=== PATIENT | male | born 1965 | race Caucasian/White ===

== ENCOUNTER 2024-08-07 03:02 | Day surgery (SDC) | payer BC, SELFPAY ==
[2024-07-28 08:32] VITALS: BMI 24.3
[2024-08-07 06:13] VITALS: BP 128/73; PULSE 85; RESP 18; TEMP 36.1; O2SAT 100; BMI 24.1
[2024-08-07] MEDS: LACTATED RINGERS 1,000 ML 150 ML IV CONT (06:59)
--- NOTE | 2024-08-07 07:19 | SUR.PREOP ---
Informed Dr. Strickland that patient stated they ate a lunchable, Dr. Strickland will continue with procedure
--- NOTE | 2024-08-07 07:27 | P.PNAN_ITS ---
Anes - Initial Pre Proc Eval Procedure: Operation Date: 08/07/24 07:30 Proposed Procedures p Screening Colonoscopy - Bairon Strickland MD Date/Time: 08/07/24 07:27 Surgeon: Bairon Strickland MD Pre Op Diagnosis: hx colon polyps Patient Data Age: 59 Gender: M Height: 1.78 m Weight: 76.4 kg Last Vital Signs Temp 36.1 C L 08/07/24 06:13 Pulse 85 08/07/24 06:13 Resp 18 08/07/24 06:13 BP 128/73 08/07/24 06:13 Pulse Ox 100 08/07/24 06:13 O2 Del Method Room Air 08/07/24 06:13 Allergies Allergy/AdvReac Type Severity Reaction Status Date / Time No Known Allergies Allergy Verified 08/07/24 06:33 Home Medications Medication Instructions Recorded Confirmed Type tamsulosin 0.4 mg capsule 0.4 mg PO DAILY 07/28/24 08/07/24 History Patient hx anesthesia problems: none Family hx anesthesia problems: none Results Review: All pre-operative results and documents have been reviewed as part of the pre-operative evaluation. [facility] Social History Social History Alcohol intake: current Drinks per week: 1 Spiritual care concerns: No Anes - Eval Final PreProcedure Day of Procedure 08/07/24 07:27 Patient weight: normal Heart: regular rate and rhythm Lungs: clear to auscultation Airway: Mallampati scale class II Neurological: alert and oriented Last oral intake: >/= 8 hours ASA classification: II Emergent: no Anesthetic plan: proceed Anesthesia type and monitoring: general GIVS and standard monitoring Results Review: All pre-operative results and documents have been reviewed as part of the pre- operative evaluation. Informed Consent: The patient's anesthetic plan and its attendant risks and benefits were discussed with the patient/family/POA. Questions were solicited and answers provided to the satisfaction of the patient/family/POA.
--- NOTE | 2024-08-07 07:28 | PM.IMHP ---
H&P: HPI History of Present Illness Date/Time: 08/07/24 07:28 Chief Complaint: the patient comes today for his follow-up colonoscopy. Narrative: The patient has a history of colonic polyps, the last colonoscopy was Five years ago. [facility] Social History Social History Alcohol intake: current Drinks per week: 1 Spiritual care concerns: No Meds Home Medications and Allergies Home Medications Medication Instructions Recorded Confirmed Type tamsulosin 0.4 mg capsule 0.4 mg PO DAILY 07/28/24 08/07/24 History Allergies Allergy/AdvReac Type Severity Reaction Status Date / Time No Known Allergies Allergy Verified 08/07/24 06:33 Vital Signs Vital Signs - 24 hr 08/07/24 06:13 Temperature 97.0 F L Pulse Rate 85 Respiratory Rate 18 Blood Pressure 128/73 Pulse Oximetry 100 Oxygen Delivery Room Air Assessment and Plan Assessment and plan (1) History of colonic polyps: Code(s): Z86.0100 - Personal history of colon polyps, unspecified Status: Acute Plan The patient is deemed a good candidate for the procedure. Consent signed. Will proceed.
[2024-08-07 07:51] VITALS: BP 124/81; PULSE 72; RESP 13; O2SAT 100
[2024-08-07 08:01] VITALS: BP 121/82; PULSE 70; RESP 21; O2SAT 100
[2024-08-07 08:11] VITALS: BP 125/78; PULSE 64; RESP 11; O2SAT 100
== END 2024-08-07 08:21 | disposition home or self-care (01) ==
PROVIDERS: PCP Internal Medicine; Referring Provider Internal Medicine Gastroenterology; Visit Provider Internal Medicine Gastroenterology
PROC: 0DJD8ZZ Inspection of Lower Intestinal Tract, Via Natural or Artificial Opening Endoscopic (ICD-10-PCS; CPT 45378; principal; 2024-08-07 07:30)
DX: Z09 Encounter for follow-up examination after completed treatment for conditions other than malignant neoplasm (principal); D12.5 Benign neoplasm of sigmoid colon; K57.30 Diverticulosis of large intestine without perforation or abscess without bleeding
CPT/HCPCS: 45385; 88305; J2003; J2704; J7120

== ENCOUNTER 2025-04-24 16:38 | Emergency (ER) | payer BC, SELFPAY ==
--- NOTE | ~2025-04-24 | CT_ITS ---
CT of the Abdomen and Pelvis: Indication: Abdominal pain Technique: 2.5 mm axial scans were obtained through the abdomen and pelvis following intravenous adm inistration of 100 cc of Omnipaque 350. Dose reduction technique was used on this scan by utilizing a utomated exposure control and iterative reconstruction technique. The dose-length product (DLP) was 3 86.32 mGy-cm. Findings: Scans through the lung bases are unremarkable. The liver, spleen, pancreas, gallbladder, adrenals and kidneys are within normal limits. No evidence of aortic aneurysm. No lymphadenopathy. No bowel obstruction or bowel wall thickening. There is no evidence to suggest acute appendicitis. Images through the pelvis were performed. Urinary bladder unremarkable. Prostate gland is significant ly enlarged. Impression: No significant abnormalities seen. Reviewed, dictated and finalized at [facility]. Impression: No significant abnormalities seen.
--- NOTE | ~2025-04-24 | US_ITS ---
Limited Abdominal Sonogram: Real-time sonographic imaging of the right upper quadrant was performed. Clinical History: Acute cholecystitis Findings: The liver appears normal with no evidence of mass lesion or bile duct dilatation. Main por shaheen vein demonstrates normal direction of flow. The gallbladder is well distended, and appears normal with no evidence of gallstone or wall thickening. The common bile duct measures 5 mm. The visualize d pancreas, aorta, and IVC are unremarkable. Impression: No significant abnormality seen. Reviewed, dictated and finalized at location . Impression: No significant abnormality seen.
--- OUTSIDE RECORDS SUMMARY | 2025-04-24 16:39 | XMS_ITS | Clinical Summary ---
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 Gender Identity Not on file Sexual Orientation Not on file Last Filed Vital Signs Vital Sign Reading Time Taken Comments Blood Pressure - - Pulse - - Temperature - - Respiratory Rate - - Oxygen Saturation - - Inhaled Oxygen Concentration - - Weight 72.6 kg (160 lb) 11/08/2021 1:13 PM HEAT REGULATOR Height 177.8 cm (5' 10) 11/08/2021 1:13 PM HEAT REGULATOR Body Mass Index 22.96 11/08/2021 1:13 PM HEAT REGULATOR Plan of Treatment Health Maintenance Due Date Last Done Comments HEPATITIS B VACCINES (1 of 3 - 19+ 3-dose series) 05/08 COLORECTAL SCREENING 2012 Colorectal Cancer Screening 2012 FIT-DNA Q 3 years 2012 FIT/FOBT Q 1 year 2012 Flex Sig/CT Colonography Q 5 years 2012 ZOSTER VACCINE (1 of 2) 2017 INFLUENZA VACCINE (#1) 2025 DTAP/TDAP/TD VACCINES (2 - Td or Tdap) 10/29/2028 Insurance BS BLUE ACCESS/TRUE BLUE PPO Care Teams Director Physical Therapy Relationship Specialty Start Date End Date Hong Healy MD [address] [id number] PCP - General Internal Medicine 11/08/21
--- OUTSIDE RECORDS SUMMARY | 2025-04-24 16:40 | XMS_ITS | Clinical Summary ---
Author Organization [facility] Address [address] [place] [address] Care Team Providers Care Conveyor Man Name Role Phone Hong Healy MD Primary Care Provider [phone] Allergies No known active allergies Medications No known medications Active Problems Patient Care Coordination No te Formatting of this note migh t be different from the original. Tongue pain Problem Noted Date Diagnosed Date Sprain of left ankle 06/12/2022 Family history of colon cancer 12/06/2020 Assessment & Plan (12/06/2020 11:30 AM TRACTOR OPERATOR HELPER): Next colonoscopy in 2023 Anemia 03/11/2020 Contusion of rib 03/11/2020 Raised prostate specific antigen 03/11/2020 Assessment & Plan (12/06/2020 11:29 AM TRACTOR OPERATOR HELPER): Per urology Thalassemia 03/11/2020 Assessment & Plan (12/06/2020 11:29 AM TRACTOR OPERATOR HELPER): Will continue to follow Well adult health check 03/11/2020 Closed fracture of right fibula and tibia 2019 Overview (01/21/2020): Added automatically from request for surgery [id number] Pain in right knee 12/17/2017 Impotence 07/17/2017 Encounters Date Type Department Care Team Description 04/23/2025 Results Follow-Up [facility] [address] [place] [address] Jessica Crooks, CORRUGATED FASTENER DRIVER US Scrotum 04/19/2025 Telephone [facility] [address] [place] [phone] Hong Healy MD 04/16/2025 7:41 AM CDT - 04/16/2025 11:59 PM CDT Hospital Encounter [address] [address] Pain in right testicle; Swelling of right testicle Discharge Disposition: Discharge to home or self care 04/14/2025 2:45 PM CDT Office Visit [facility] [address] [place] [address] [address] [place] [phone] Jessica Crooks NP Pain in right testicle (Primary Dx); Swelling of right testicle; Right groin pain 02/26/2025 7:28 AM CDT - 02/26/2025 11:59 PM CDT Hospital Encounter [facility] [address] [place] [id number] RUQ pain Discharge Disposition: Discharge to home or self care 02/26/2025 Results Follow-Up [facility] [address] [place] [address] [address] [place] [phone] Hong Healy MD NE Hepatobiliary Imaging [facility] 02/13/2025 Results Follow-Up [facility] [address] [place] [address] [address] [place] [phone] Hong Healy MD Basic metabolic panel, Ferritin, CBC with auto differential 01/25/2025 Results Follow-Up [facility] [address] [place] [address] [address] [facility] [place] [phone] Hong Healy MD US RUQ from Last 3 Months Immunizations Immunization Administration Dates Next Due Tdap 10/29/2018 ZOSTER Recombinant 09/13/2022,04/14/2022 Surgical History Surgery Date Site/Laterality Comments ORIF TIBIA & FIBULA FRACTURES 01/06/2020 - 02/04/2020 Right SKIN GRAFT 10/07/1979 - 10/06/1980 Left knee NASAL FRACTURE SURGERY 10/07/1987 - 10/06/1988 COLONOSCOPY Multiple-- Last 2018 CYST REMOVAL 10/07/1985 - 10/06/1986 Lower abdomen-- Benign Medical History Medical History Date Comments History of anemia Depression Anxiety Thalassemia Family History Medical History Relation Name Comments Arthritis Father Tomas Cancer Father Tomas Gout Father Tomas Diabetes Mother Mother Hypertension Mother Mother Thyroid disease Mother Mother Anesthesia problems Neg Hx Relation Name Status Comments Father Tomas Mother Mother Social History Tobacco Use Types Packs/Day Years Used Date Smoking Tobacco: Never Smokeless Tobacco: Never Tobacco Cessation:Counseling Given: Not Answered Alcohol Use Standard Drinks/Week Comments Yes 0 (1 standard drink = 0.6 oz pur e alcohol) 2-3 month PHQ-2 Answer Date Recorded PHQ-2 Total Score (If total score is 3 or more points, staff should administer the PHQ-9) 0 12/30/2024 Sex and Gender Information Value Date Recorded Sex Assigned at Not on file Legal Sex Male 2:40 PM TRACTOR OPERATOR HELPER Gender Identity Male 08/26/2018 2:44 PM TRACTOR OPERATOR HELPER Sexual Orientation Straight 07/26/2024 9: 27 AM CDT Obstetrics History Last Filed Vital Signs Vital Sign Reading Time Taken Comments Blood Pressure 129/78 04/14/2025 3:06 PM CDT Pulse 77 04/14/2025 3:06 PM CDT Temperature 36.3 C (97.3 F) 07/26/2020 11:10 AM CDT Respiratory Rate 14 07/26/2020 11:10 AM CDT Oxygen Saturation 95% 06/03/2024 2:48 PM CDT Inhaled Oxygen Concentration - - Weight 78.5 kg (173 lb) 04/14/2025 3:06 PM CDT Height 177.8 cm (5' 10) 04/14/2025 3:06 PM CDT Body Mass Index 24.82 04/14/2025 3:06 PM CDT Plan of Treatment Health Maintenance Due Date Last Done Comments Meningococcal B Vaccine (1 of 5 - Increased Risk) 1977 Hepatitis B Screening 1985 Influenza Vaccine (#1) 2025 Pneumococcal vaccine <65 (1 of 2 - PCV) 12/22/2025 Postponed from 1986 (Patient declined, but will receive in the future) Depression Screening 01/06/2026 01/06/2025, 01/07/20 24 Regular Well Visit/Exam 18-64 01/06/2026 01/06/2025, 01/07/2024, 11/09/2022, Additional history exists Prostate Cancer Screening-PSA 01/06/2027 01/06/2025, 06/11/2023, 11/27/2021 DTaP/Tdap/Td Vaccine (2 - Td or Tdap) 10/29/2028 10/29/2018 Colon Cancer Screening-Colonoscopy 12/06/2028 12/06/2018 Colon Cancer Screening-CT Colonography Discontinued 12/06/2018 Colon Cancer Screening-DNA Stool Discontinued 12/06/2018 Colon Cancer Screening-FIT Discontinued 12/06/2018 Colon Cancer Screening-Sigmoidoscopy Discontinued 12/06/2018 Zoster Vaccine Completed 09/13/2022, 04/14/2022 Hepatitis C Screening Completed 01/06/2025 Medical Devices Implanted Type Area Stock Dealer Device Identifier Shelf Expiration Date Model / Serial / Lot [employer]/Orth o [id number] Evos 32mm 4 Hole Lock Reconstruction Plate Bone Sterile 2.7mm - [id number] Implanted:Qty: 1 on 01/22/2020 by Nicki Bates MD at [facility] Right: Tibia [employer]Or tho [id number] / / [employer]Orth o [id number] Evos 3.5mm 40mm Self Tap Cortex Screw Bone Sterile - [id number] Implanted:Qty: 1 on 01/22/2020 by Nicki Bates MD at [facility] Right: Tibia [employer]Or tho [id number] / / [employer]Orth o [id number] Evos 3.5mm 24mm Self Tap Cortex Screw Bone Sterile - [id number] Implanted:Qty: 1 on 01/22/2020 by iNcki Bates MD at [facility] Right: Tibia [employer]Or tho [id number] / / [employer]Orth o [id number] Evos 3.5mm 24mm Self Tap Lock Screw Bone Sterile - [id number] Implanted:Qty: 1 on 01/22/2020 by Nicki Bates MD at [facility] Right: Tibia [employer]Or tho [id number] / / [employer]Orth o [id number] Evos 3.5mm 80mm Self Tap Lock Screw Bone Sterile - [id number] Implanted:Qty: 1 on 01/22/2020 by Nicki Bates MD at [facility] Right: Tibia [employer]Or tho [id number] / / [employer]/Orth o [id number] Evos 3.5mm 75mm Self Tap Lock Screw Bone Sterile - [id number] Implanted:Qty: 6 on 01/22/2020 by Nicki Bates MD at [facility] Right: Tibia [employer]Or tho [id number] / / [employer]Orth o [id number] Evos 3.5mm 70mm Self Tap Lock Screw Bone Sterile - [id number] Implanted:Qty: 1 on 01/22/2020 by Nicki Bates MD at [facility] Right: Tibia [employer]Or tho [id number] / / [employer]/Orth o [id number] Evos 3.5mm 60mm Self Tap Lock Screw Bone Sterile - [id number] Implanted:Qty: 2 on 01/22/2020 by Nicki Bates MD at [facility] Right: Tibia [employer]Or tho [id number] / / [employer]/Orth o [id number] Evos 3.5mm 55mm Self Tap Lock Screw Bone Sterile - [id number] Implanted:Qty: 1 on 01/22/2020 by Nicki Bates MD at [facility] Right: Tibia [employer]Or tho [id number] / / [employer]/Orth o [id number] - [id number] Implanted:Qty: 1 on 01/22/2020 by Nicki Bates MD at [facility] Right: Tibia [employer]Or tho [id number] / / [employer]Orth o [id number] Evos 75x10.9x2mm 25x1.5mm 4 Hole Low Profile Variable Angle Lock - [id number] Implanted:Qty: 1 on 01/22/2020 by Nicki Bates MD at [facility] Right: Tibia [employer]Or tho [id number] / / [employer]/Orth o [id number] Evos 200x11.5x3.6mm 32.3x1.9mm 16 Hole Low Profile Variable Angle - [id number] Implanted:Qty: 1 on 01/22/2020 by Nicki Bates MD at [facility] Right: Tibia [employer]Or tho [id number] / / [employer]/Orth o [id number] Evos Mini 2.7mm 4.5mm 75mm Self Tap Cooler Conveyor Loader Long Bone Small Bone - [id number] Implanted:Qty: 2 on 01/22/2020 by Nicki Bates MD at [facility] Right: Tibia [employer]Or tho [id number] / / [employer]/Orth o [id number] Evos Mini 2.7mm 4.5mm 75mm Self Tap Cortex T8 Screw Bone - [id number] Implanted:Qty: 1 on 01/22/2020 by Nicki Bates MD at [facility] Right: Tibia [employer]Or tho [id number] / / [employer]/Orth o [id number] Evos Mini 2.7mm 4.5mm 65mm Self Tap Cortex T8 Screw Bone - [id number] Implanted:Qty: 1 on 01/22/2020 by Nicki Bates MD at [facility] Right: Tibia [employer]/Or tho [id number] / / [employer]/Orth o [id number] Evos 3.5mm 34mm Self Tap Cortex Screw Bone Sterile - [id number] Implanted:Qty: 1 on 01/22/2020 by Nicki Bates MD at [facility] Right: Tibia [employer]/Or tho [id number] / / [employer]/Orth o [id number] Evos 3.5mm 22mm Self Tap Cortex Screw Bone Sterile - [id number] Implanted:Qty: 1 on 01/22/2020 by Nicki Bates MD at [facility] Right: Tibia [employer]/Or tho [id number] / / Explanted Type Area Stock Dealer Device Identifier Shelf Expiration Date Model / Serial / Lot [employer]/ Ortho [id number] Evos 3.5mm 36mm Self Tap Cortex Screw Bone Sterile - [id number] Explanted:Qty: 1 on 01/22/2020 by Nicki Bates MD at [facility] Right: Tibia [employer]Or tho [id number] / / Procedures Procedure Name Priority Date/Time Associated Diagnosis Comments US SCROTUM Schedule Routine, Read Routine (OP Routine) 04/16/2025 8:20 AM CDT Pain in right testicle Swelling of right testicle NM HEPATOBILIARY IMAGING W MORPHINE Schedule Routine, Read Routine (OP Routine) 02/26/2025 9:49 AM CDT RUQ pain CBC WITH AUTO DIFFERENTIAL Routine 02/12/2025 12:31 PM CDT Dehydration FERRITIN Routine 02/12/2025 12:31 PM CDT Dehydration BASIC METABOLIC PANEL Routine 02/12/2025 12:31 PM CDT Dehydration HEPATITIS C ANTIBODY Routine 01/06/2025 3:14 PM CDT Routine general medical examination at a health care facility Encounter for hepatitis C screening test for low risk patient Screening for prostate cancer Right upper quadrant pain PSA SCREEN Routine 01/06/2025 3:14 PM CDT Routine general medical examination at a health care facility Encounter for hepatitis C screening test for low risk patient Screening for prostate cancer Right upper quadrant pain COLONOSCOPY Routine 12/06/2018 from Last 3 Months or Most Recently Relevant to Health Maintenance Results * US Scrotum (04/16/2025 8:20 AM CDT) Anatomical Region Laterality Modality Testis N/A Ultrasound 04/22/2025 5:15 PM CDT Narrative 04/22/2025 5:18 PM CDT EXAM DESCRIPTION: US SCROTUM; US GROIN MASS HERNIA RIGHT REASON FOR STUDY: right testicle pain, swelling ; right groin pain TECHNIQUE: Pichardo scale imaging of the scrotum, testes, and bilateral inguinal regions. COMPARISON: None FINDINGS: RIGHT: TESTICLE: The right testicle measures 4.9 x 2.9 x 1.7 cm. The right testicle is normal in echotexture and contour with no mass. There is normal blood flow. EPIDIDYMIS: The epididymis is normal in size and appearance. HYDROCELE OR VARICOCELE: There is no evidence of significant hydrocele or varicocele. HERNIA OR EXTRA-TESTICULAR MASS: There is no evidence of extratesticular mass. OTHER: A lymph node measuring 0.7 cm in shortest diameter is seen. LEFT: TESTICLE: The left testicle measures 4.0 x 2.6 x 2.2 cm. The left testicle is normal in echotexture and contour with no solid mass. There is a 1.5 x 1.2 x 0.9 cm cyst in the left testicle. There is normal blood flow. EPIDIDYMIS: The epididymis is normal in size and appearance. HYDROCELE OR VARICOCELE: There is no evidence of significant hydrocele or varicocele. HERNIA OR EXTRA-TESTICULAR MASS: There is no evidence of extratesticular mass. OTHER: A lymph node measuring 0.6 cm in shortest diameter is seen. IMPRESSION: 1. Left testicular cyst. 2. Bilateral inguinal lymph nodes which appear benign by size criteria. THIS IS AN ELECTRONICALLY VERIFIED FINAL REPORT 04/22/2025 5:18 PM - Electronically signed by Anirudh WINN T: Report ID: [id number] Reading Location: [id number] Procedure Note Anirudh Delgado MD - 07/17/2025 EXAM DESCRIPTION: US SCROTUM; US GROIN MASS HERNIA RIGHT REASON FOR STUDY: right testicle pain, swelling ; right groin pain TECHNIQUE: Pichardo scale imaging of the scrotum, testes, and bilateralinguinal regions. COMPARISON: None FINDINGS: RIGHT: TESTICLE: The right testicle measures 4.9 x 2.9 x 1.7 cm. The right testicle is normal in echotexture and contour with no mass. There isnormal blood flow. EPIDIDYMIS: The epididymis is normal in size and appearance. HYDROCELE OR VARICOCELE: There is no evidence of significant hydroceleor varicocele. HERNIA OR EXTRA-TESTICULAR MASS: There is no evidence of extratesticular mass. OTHER: A lymph node measuring 0.7 cm in shortest diameter is seen. LEFT: TESTICLE: The left testicle measures 4.0 x 2.6 x 2.2 cm. The lefttesticle is normal in echotexture and contour with no solid mass. There is a 1.5 x1.2 x 0.9 cm cyst in the left testicle. There is normal blood flow. EPIDIDYMIS: The epididymis is normal in size and appearance. HYDROCELE OR VARICOCELE: There is no evidence of significant hydroceleor varicocele. HERNIA OR EXTRA-TESTICULAR MASS: There is no evidence of extratesticular mass. OTHER: A lymph node measuring 0.6 cm in shortest diameter is seen. IMPRESSION: 1. Left testicular cyst. 2. Bilateral inguinal lymphnodes which appear benign by size criteria. THIS IS AN ELECTRONICALLY VERIFIED FINAL REPORT 04/22/2025 5:18 PM - Electronically signed by Anirudh Delgado M.D. BS T: Report ID: [id number] Reading Location: [id number] us Jessica Crooks NP IMG US PROCEDURES Final Resul t * NM Hepatobiliary Imaging W GBEF (02/26/2025 9:49 AM CDT) Anatomical Region Laterality Modality Body N/A Nuclear Medicine 02/26/2025 11:4 0 AM CDT Impressions 02/26/2025 11:45 AM CDT 1. Borderline contractile response of gallbladder to sincalide infusion. Given that the prior RUQ ultrasound did not show any signs of cholecystitis, findings are favored to represent a normal variant. 2. Normal biliary imaging study. Dictated by: Monica Cast The radiology attending physician has personally reviewed this study, and had reviewed and/or edited this written report and agrees with it. Electronically signed by: DO Cole Hernandez 02/26/2025 11:45 AM CDT EXAMINATION: HEPATOBILIARY SCINTIGRAPHY (WITH GALLBLADDER EJECTION FRACTION) DATE OF STUDY: 02/26/2025 RADIOPHARMACEUTICAL: 3.3 mCi Tc-99m mebrofenin i.v. and 1.5 mcg sincalide i.v. HISTORY: 9-year-old man with right upper quadrant abdominal pain. FINDINGS: Following intravenous administration of tracer, sequential abdominal images were obtained. There is prompt, uniform accumulation of the tracer by the liver. There is normal filling of the intrahepatic ducts, common bile duct and gallbladder and normal excretion of the tracer into the duodenum. In order to evaluate the contractile response of the gallbladder in response to cholecystokinin, sincalide (0.02 mcg /kg) was administered by slow intravenous infusion over 30 minutes, starting approximately 60 minutes after the administration of the radiopharmaceutical. Sequential imaging was continued for 30 minutes after the start of the sincalide infusion. These images demonstrate good contraction of the gallbladder. The calculated gallbladder ejection fraction is 35% (normal greater than 35%). The patient reported no symptoms during Sincalide administration. A screen capture image demonstrating the quantitative results of this study was sent to [facility] by the interpreting physician Dr Rowdy Arriaza. Procedure Note Rowdy Arriaza DO - 02/26/2025 EXAMINATION: HEPATOBILIARY SCINTIGRAPHY (WITH GALLBLADDER EJECTION FRACTION) DATE OF STUDY: 02/26/2025 RADIOPHARMACEUTICAL: 3.3 mCi Tc-99m mebrofenin i.v. and 1.5 mcg sincalide i.v. HISTORY: 9-year-old man with right upper quadrant abdominal pain. FINDINGS: Following intravenous administration of tracer, sequential abdominal images were obtained. There is prompt, uniform accumulation of the tracer by the liver. There is normal filling of the intrahepatic ducts, common bile duct and gallbladder and normal excretion of the tracer into the duodenum. In order to evaluate the contractile response of the gallbladder in response to cholecystokinin, sincalide (0.02 mcg /kg) was administered by slow intravenous infusion over 30 minutes, starting approximately 60 minutes after the administration of the radiopharmaceutical. Sequential imaging was continued for 30 minutes after the start of the sincalide infusion. These images demonstrate good contraction of the gallbladder. The calculated gallbladder ejection fraction is 35% (normal greater than 35%). The patient reported no symptoms during Sincalide administration. A screen capture image demonstrating the quantitative results of this study was sent to [facility] by the interpreting physician Dr Rowdy Arriaza. IMPRESSION: 1. Borderline contractile response of gallbladder to sincalide infusion. Given that the prior RUQ ultrasound did not show any signs of cholecystitis, findings are favored to represent a normal variant. 2. Normal biliary imaging study. Dictated by: Monica Cast The radiology attending physician has personally reviewed this study, and had reviewed and/or edited this written report and agrees with it. Electronically signed by: Rowdy Arriaza DO us Hong Healy MD IM NM PROCEDURES Final Resul t * (ABNORMAL) CBC with auto differential (02/12/2025 12:31 PM CDT) WBC 4.6 3.4 - 10.8 x10E3/uL [facility] - 01 RBC 6.05(H) 4.14 - 5.80 x10E6/uL [facility] - 01 Hgb 12.6(L) 13.0 - 17.7 g/dL [facility] - 01 Hct 41.6 37.5 - 51.0 % [facility] - 01 MCV 69(L) 79 - 97 fL [facility] - 01 MCH 20.8(L) 26.6 - 33.0 pg [facility] - 01 MCHC 30.3(L) 31.5 - 35.7 g/dL [facility] - 01 Rdw 17.0(H) 11.6 - 15.4 % [facility] - 01 Platelets 227 150 - 450 x10E3/uL [facility] - 01 Neutrophils pct 62 Not Estab. % [facility] - 01 Lymphs pct 26 Not Estab. % [facility] - 01 Monocytes pct 9 Not Estab. % [facility] - 01 Eosinophils pct 2 Not Estab. % [facility] - 01 Basophil pct 1 Not Estab. % [facility] - 01 Neutrophil abs 2.9 1.4 - 7.0 x10E3/uL [facility] - 01 Lymphs (Absolute) 1.2 0.7 - 3.1 x10E3/uL [facility] - 01 Monocyte abs 0.4 0.1 - 0.9 x10E3/uL [facility] - 01 Eosinophils, abs 0.1 0.0 - 0.4 x10E3/uL [facility] - 01 Basophils, abs 0.0 0.0 - 0.2 x10E3/uL [facility] - 01 Immature Granulocytes 0 Not Estab. % [facility] - 01 Immature Grans (Abs) 0.0 0.0 - 0.1 x10E3/uL [facility] - 01 Blood 02/12/2025 12:3 1 PM CDT 02/12/2025 Narrative [facility] - 02/13/2025 9:10 AM CDT Performed at: [address] [place] [id number] Risk Adjustment Specialist: Akira Meraz PhD, Phone: [phone] Hong Healy MD LAB BLOOD ORDERABLES Final Re sult Performing Organization Address [facility] de Phone Number [facility] * Ferritin (02/12/2025 12:31 PM CDT) [facility] Ferritin 187 30 - 400 ng/mL [facility] - 01 Blood 02/12/2025 12:3 1 PM CDT 02/12/2025 Narrative [facility] - 02/13/2025 9:10 AM CDT Performed at: [address] [place] [id number] Risk Adjustment Specialist: Akira Meraz PhD, Phone: [phone] Hong Healy MD LAB BLOOD ORDERABLES Final Re sult Performing Organization Address [facility] de Phone Number [facility] - * Basic metabolic panel (02/12/2025 12:31 PM CDT) Glucose 91 70 - 99 mg/dL [facility] - 01 BUN 11 6 - 24 mg/dL [facility] - 01 Creatinine, Serum 0.89 0.76 - 1.27 mg/dL [facility] - 01 eGFR 100 >59 mL/min/1.73 [facility] - 01 BUN/creat ratio 12 9 - 20 [facility] - 01 Sodium 139 134 - 144 mmol/L [facility] - 01 Potassium, sr 4.2 3.5 - 5.2 mmol/L [facility] - 01 Chloride 100 96 - 106 mmol/L [facility] - 01 CO2 26 20 - 29 mmol/L [facility] - 01 Calcium 9.0 8.7 - 10.2 mg/dL [facility] - 01 Blood 02/12/2025 12:3 1 PM CDT 02/12/2025 Narrative [facility] - 02/13/2025 9:10 AM CDT Performed at: [address] [id number] Risk Adjustment Specialist: Akira Meraz PhD, Phone: [phone] us Hong Healy MD LAB BLOOD ORDERABLES Final Re sult [facility] - * (ABNORMAL) PSA screen (01/06/2025 3:14 PM CDT) Pathologist [facility] PSA-Total 4.51(H) <=3.90 ng/mL Comment: Interpretive Data AGE SEX REFERENCE INTERVAL 0 minutes-150 years Female None 0 minutes-49 years Male None 50-59 years Male 0-3.90 60-69 years Male 0-5.40 70-79 years Male 0-6.20 80-150 years Male 0-6.20 The [employer] PSA Total assay procedure was used. Results from different manufacturers or methods may not be comparable. Serial testing should be performed using the same method. Current interpretive data last revised 22. Blood 01/06/2025 3:14 PM CDT 01/06/2025 3:42 PM CDT Hong Healy MD LAB BLOOD ORDERABLES Final Re sult Performing Organization Address City/State/[facility] Co de Phone Number [facility] Department [place] [address] * Hepatitis C antibody Blood (01/06/2025 3:14 PM CDT) Hep C Ab Nonreactive Nonreactive Comment:Antibodies to HCV no t detected. Does NOT exclude the possibility of recent exposure to HCV. Current interpretive data was last revised on 22 Blood 01/06/2025 3:14 PM CDT 01/06/2025 3:42 PM CDT Hong Healy MD LAB MICROBIOLOGY - GENERAL OR DERABLES Final Result Performing Organization Address [facility] Co de Phone Number AARON [facility] Department [place] [address] * Colonoscopy (12/06/2018) Anatomical Region Laterality Modality Other Narrative 12/06/2018 Pt reported he had 2 [facility] ago [facility] Historical Provider ENDOSCOPY PROCEDURES Aidee l Result from Last 3 Months or Most Recently Relevant to Health Maintenance Insurance [facility]115 network disks CHOICE Datam OOS [facility]115 network disks CHOICE MAURA ACCESS CHOICE Advance Directives For more information, please contact: [phone] * Full Code (Latest Code Status on File) Date Activated Date Inactivated Comments 01/21/2020 10:40 PM 01/24/2020 8:13 PM Care Teams Conveyor Man Relationship Specialty Start Date End Date Hong Healy MD PCP - General Internal Medicine 12/06/20
--- OUTSIDE RECORDS SUMMARY | 2025-04-24 16:40 | XMS_ITS | Encounter Summary ---
Author Organization [facility] Address [address] [place] [address] Care Team Providers Care Concrete Mixer Operator Helper Name Role Phone Hong Healy MD Primary Care Provider [phone] Reason for Referral * MRI/CAT/PET Scan (Routine) - Authorized Specialty Diagnoses / Procedures Referred By Contac t Referred To Contact Radiology Diagnoses Pain in right testicle Procedures CT Abdomen Pelvis W Contrast Jessica Crooks NP [address] [address] Phone: tel: fax: [address] [phone] Referral ID Status Reason Start Date Expiration Date V isits Requested Visits Authorized [id number] Authorized 04/23/2025 05/22/2025 1 1 Encounter Details Date Type Department Care Team (Late st Contact Info) Description 04/23/2025 Results Follow-Up [facility] [address] 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 Otherwise normal, no mass or hernia seen. Recommend CT scan of the abd/pelvis with contrast for further evaluation of groin pain. Also recommend checking a UA with reflex to urine culture - what ever lab he would like to go to. ----- Message ----- From: Interface, Radiology Results In Sent: 04/22/2025 5:20 PM CDT To: Jessica Crooks NP * Telephone Encounter - Ryann Moore RMA - 04/23/2025 3:26 PM CDT Pt aware sent lab [facility] for [facility] Ct schedulked 04/30/25 arrive 1:10 * Telephone Encounter - Ryann Moore RMA - 04/23/2025 3:26 PM CDT ----- Message from Jessica Crooks NP sent at 04/23/2025 11:46 AM CDT ----- US of groin and scrotum showed cyst on the left testicle and bilateral inguinal lymph nodes that appear benign. Otherwise normal, no mass or hernia seen. Recommend CT scan of the abd/pelvis with contrast for further evaluation of groin pain. Also recommend checking a UA with reflex to urine culture - what ever lab he would like to go to. ----- Message ----- From: Interface, Radiology Results In Sent: 04/22/2025 5:20 PM CDT To: Jessica Crooks NP documented in this encounter Plan of Treatment Scheduled Orders Name Type Priority Associated Diagnoses Order Schedule Urinalysis reflex to microscopic and culture Urine Microbiology Routine Pain in right testicle Expected: 04/26/2025, Expires: 04/23/2026 CT Abdomen Pelvis W Contrast Imaging Schedule Routine, Read Routine (OP Routine) Pain in right testicle Expected: 04/23/2025, Expires: 04/23/2026 documented as of this encounter Visit Diagnoses Diagnosis Pain in right testicle- Primary Unspecified disorder of male genital organs documented in this encounter Care Teams Concrete Mixer Operator Helper Relationship Specialty Start Date End Date Hong Healy MD PCP - General Internal Medicine 12/06/20 documented as of this encounter
--- OUTSIDE RECORDS SUMMARY | 2025-04-24 16:40 | XMS_ITS | Referral Summary ---
Author Organization [facility] Address [address] [place] [address] Care Team Providers Care Curriculum And Assessment Director Name Role Phone Hong Healy MD Primary Care Provider [phone] Encounters Date Type Department Care Team Description 04/23/2025 Results Follow-Up [facility] [address] [place] [address] [address] [place] [id number] [facility]25 Telephone [facility] [address] [place] [address] [address] [place] [phone] Hong Healy MD 04/16/2025 7:41 AM CDT - 04/16/2025 11:59 PM CDT Hospital Encounter [address] [address] Pain in right testicle; Swelling of right testicle Discharge Disposition: Discharge to home or self care 04/14/2025 2:45 PM CDT Office Visit [facility] [address] [place] [address] [address] [place] [phone] Jessica Crooks NP Pain in right testicle (Primary Dx); Swelling of right testicle; Right groin pain 02/26/2025 Results Follow-Up [facility] [address] [place] [address] [address] [place] [phone] Hong Healy MD [facility] 02/26/2025 7:28 AM CDT - 02/26/2025 11:59 PM CDT Hospital Encounter [facility] [address] [place] [address] RUQ pain Discharge Disposition: Discharge to home or self care 02/13/2025 Results Follow-Up [facility] [address] [facility] [address] [place] [address] Hong Healy MD Basic metabolic panel, Ferritin, CBC with auto differential 01/25/2025 Results Follow-Up [facility] [address] [facility] [address] [facility] [place] [address] Hong Healy MD US RUQ from Last 3 Months Allergies No known active allergies Medications No known medications Active Problems Patient Care Coordination No te Formatting of this note migh t be different from the original. Tongue pain Problem Noted Date Diagnosed Date Sprain of left ankle 06/12/2022 Family history of colon cancer 12/06/2020 Assessment & Plan (12/06/2020 11:30 AM STUDENT SERVICES DEAN): Next colonoscopy in 2023 Anemia 03/11/2020 Contusion of rib 03/11/2020 Raised prostate specific antigen 03/11/2020 Assessment & Plan (12/06/2020 11:29 AM STUDENT SERVICES DEAN): Per urology Thalassemia 03/11/2020 Assessment & Plan (12/06/2020 11:29 AM STUDENT SERVICES DEAN): Will continue to follow Well adult health check 03/11/2020 Closed fracture of right fibula and tibia 2019 Overview (01/21/2020): Added automatically from request for surgery [id number] Pain in right knee 12/17/2017 Impotence 07/17/2017 Immunizations Immunization Administration Dates Next Due Tdap 10/29/2018 ZOSTER Recombinant 09/13/2022,04/14/2022 Social History Tobacco Use Types Packs/Day Years [...] on file Legal Sex Male 2:40 PM STUDENT SERVICES DEAN Gender Identity Male 08/26/2018 2:44 PM STUDENT [employer] DEAN Sexual Orientation Straight 07/26/2024 9: 27 AM CDT Last Filed Vital Signs Vital Sign Reading [...] 04/14/2025 3:06 PM CDT Plan of Treatment Not on file Medical Devices Implanted Type Area Stitcher Set Up Operator Automatic Device Identifier Shelf Expiration Date Model / Serial / Lot [employer]/Orth o [id number] Evos 32mm 4 Hole Lock Reconstruction Plate Bone Sterile 2.7mm - [id number] Implanted:Qty: 1 on 01/22/2020 by Nicki Bates MD at [facility] Right: Tibia [employer]Or tho [id number] / / [employer]Orth o [id number] Evos 3.5mm 40mm Self Tap Cortex Screw Bone Sterile - [id number] Implanted:Qty: 1 on 01/22/2020 by Nicki Bates MD at [facility] Right: Tibia [employer]Or tho [id number] / / [employer]Orth o [id number] Evos 3.5mm 24mm Self Tap Cortex Screw Bone Sterile - [id number] Implanted:Qty: 1 on 01/22/2020 by Nicki Bates MD at [facility] Right: Tibia [employer]Or tho [id number] / / [employer]Orth o [id number] Evos 3.5mm 24mm Self Tap Lock Screw Bone Sterile - [id number] Implanted:Qty: 1 on 01/22/2020 by Nicki Bates MD at [facility] Right: Tibia [employer]Or tho [id number] / / [employer]/Orth o [id number] Evos 3.5mm 80mm Self Tap Lock Screw Bone Sterile - [id number] Implanted:Qty: 1 on 01/22/2020 by Nicki Bates MD at [facility] Right: Tibia [employer]Or tho [id number] / / [employer]/Orth o [id number] Evos 3.5mm 75mm Self Tap Lock Screw Bone Sterile - [id number] Implanted:Qty: 6 on 01/22/2020 by Nicki Bates MD at [facility] Right: Tibia [employer]Or tho [id number] / / [employer]/Orth o [id number] Evos 3.5mm 70mm Self Tap Lock Screw Bone Sterile - [id number] Implanted:Qty: 1 on 01/22/2020 by Nicki Bates MD at [facility] Right: Tibia [employer]Or tho [id number] / / [employer]/Orth o [id number] Evos 3.5mm 60mm Self Tap Lock Screw Bone Sterile - [id number] Implanted:Qty: 2 on 01/22/2020 by Nicki Bates MD at [facility] Right: Tibia [employer]Or tho [id number] / / [employer]/Orth o [id number] Evos 3.5mm 55mm Self Tap Lock Screw Bone Sterile - [id number] Implanted:Qty: 1 on 01/22/2020 by Nicki Bates MD at [facility] Right: Tibia [employer]/Or tho [id number] / / [employer]/Orth o [id number] - [id number] Implanted:Qty: 1 on 01/22/2020 by Nicki Bates MD at [facility] Right: Tibia [employer]Or tho [id number] / / [employer]Orth o [id number] Evos 75x10.9x2mm 25x1.5mm 4 Hole Low Profile Variable Angle Lock - [id number] Implanted:Qty: 1 on 01/22/2020 by Nicki Bates MD at [facility] Right: Tibia [employer]Or tho [id number] / / [employer]/Orth o [id number] Evos 200x11.5x3.6mm 32.3x1.9mm 16 Hole Low Profile Variable Angle - [id number] Implanted:Qty: 1 on 01/22/2020 by Nicki Bates MD at [facility] Right: Tibia [employer]Or tho [id number] / / [employer]/Orth o [id number] Evos Mini 2.7mm 4.5mm 75mm Self Tap Single Pass Soil Stabilizer Operator Long Bone Small Bone - [id number] Implanted:Qty: 2 on 01/22/2020 by Nicki Bates MD at [facility] Right: Tibia [employer]Or tho [id number] / / [employer]/Orth o [id number] Evos Mini 2.7mm 4.5mm 75mm Self Tap Cortex T8 Screw Bone - [id number] Implanted:Qty: 1 on 01/22/2020 by Nicki Bates MD at [facility] Right: Tibia [employer]/Or tho [id number] / / [employer]/Orth o [id number] Evos Mini 2.7mm 4.5mm 65mm Self Tap Cortex T8 Screw Bone - [id number] Implanted:Qty: 1 on 01/22/2020 by Nicki Bates MD at [facility] Right: Tibia [employer]/Or tho [id number] / / [employer]/Orth o [id number] Evos 3.5mm 34mm Self Tap Cortex Screw Bone Sterile - [id number] Implanted:Qty: 1 on 01/22/2020 by Nicki Bates MD at [facility] Right: Tibia [employer]/Or tho [id number] / / [employer]/Orth o [id number] Evos 3.5mm 22mm Self Tap Cortex Screw Bone Sterile - [id number] Implanted:Qty: 1 on 01/22/2020 by Nicki Bates MD at [facility] Right: Tibia [employer]/Or tho [id number] / / Explanted Type Area Stitcher Set Up Operator Automatic Device Identifier Shelf Expiration Date Model / Serial / Lot [employer]/ Ortho [id number] Evos 3.5mm 36mm Self Tap Cortex Screw Bone Sterile - [id number] Explanted:Qty: 1 on 01/22/2020 by Nicki Bates MD at [facility] Right: Tibia [employer]/Or tho [id number] / / Procedures Procedure Name Priority Date/Time [...] Anirudh Delgado M.D. BS T: Report ID: [id number] Reading Location: [id number] Procedure Note Anirudh Delgado MD - 04/22/2025 EXAM DESCRIPTION: US SCROTUM; US GROIN MASS [...] Anirudh Delgado M.D. BS T: Report ID: [id number] Reading Location: [place] [address] us Jessica Crooks NP IMG US PROCEDURES [...] results of this study was sent to [employer] by the interpreting physician Dr Rowdy Arriaza. [...] results of this study was sent to [employer] by the interpreting physician Dr Rowdy Arriaza. [...] - 02/13/2025 9:10 AM CDT Performed at: [address] [place] [id number] Cosmetic Sales Consultant: Akira Meraz PhD, Phone: [phone] us Hong Healy MD LAB BLOOD ORDERABLES Final Re sult [facility] * Ferritin (02/12/2025 12:31 PM CDT) [facility] Ferritin 187 30 - 400 ng/mL [facility] - 01 Blood 02/12/2025 12:3 1 PM CDT 02/12/2025 Narrative [facility] - 02/13/2025 9:10 AM CDT Performed at: 01 - [facility] [id number] Cosmetic Sales Consultant: Akira Meraz PhD, Phone: [phone] Hong Healy MD LAB BLOOD ORDERABLES Final Re sult Performing Organization Address [facility] Co de Phone Number [facility] * Basic metabolic panel (02/12/2025 12:31 PM CDT) Pathologist [facility] Glucose 91 70 - 99 mg/dL [facility] [...] - 02/13/2025 9:10 AM CDT Performed at: [address] [place] [id number] Cosmetic Sales Consultant: Akira Meraz PhD, Phone: [phone] Hong Healy MD LAB BLOOD ORDERABLES Final Re sult Performing Organization Address [facility] Co de Phone Number [facility] - * (ABNORMAL) PSA screen (01/06/2025 3:14 PM CDT) Pathologist [facility] PSA-Total 4.51(H) <=3.90 ng/mL Comment: Interpretive Data [...] ORDERABLES Final Re sult Performing Organization Address [facility] Co de Phone Number [facility] Department [place] [address] * Hepatitis C antibody Blood (01/06/2025 3:14 PM CDT) Hep C Ab Nonreactive Nonreactive Comment:Antibodies to HCV no t detected. Does NOT exclude the possibility of recent exposure to HCV. Current interpretive data was last revised on 22 Blood 01/06/2025 3:14 PM CDT 01/06/2025 3:42 PM CDT Hong Healy MD LAB MICROBIOLOGY - GENERAL OR DERABLES Final Result Performing Organization Address [facility] de Phone Number [facility] Department [place] [address] * Colonoscopy (12/06/2018) Anatomical Region Laterality Modality Other Narrative 12/06/2018 Pt reported he [facility] 2 [facility] Historical Provider ENDOSCOPY PROCEDURES Aidee l Result from Last 3 Months or Most Recently Relevant to Health Maintenance [facility] [employer] [facility] ACCESS CHOICE Advance Directives For more information, please contact: [phone] * Full Code (Latest Code Status on File) Date Activated Date Inactivated Comments 01/21/2020 10:40 PM 01/24/2020 8:13 PM Care Teams Curriculum And Assessment Director Relationship Specialty Start Date End Date Hong Healy MD PCP - General Internal Medicine 12/06/20
[2025-04-24 16:48] VITALS: BP 154/74; PULSE 121; RESP 20; TEMP 36.2; O2SAT 100
[2025-04-24 17:11] LABS: Hematocrit 42.4 % (42.0-52.0); Hemoglobin 12.7 g/dL (14.0-18.0); Immature Granulocyte Percent A 0.2 % (0-0.5); Lymphocytes Absolute Auto 1.56 K/mm3 (0.9-3.2); Mean Corpuscular HGB Conc 30.0 g/dl (32-36); Mean Corpuscular Hemoglobin 20.4 pg (26-34); Mean Corpuscular Volume 67.9 fl (80-100); Nucleated Red Blood Cells Absolute Auto 0.000 K/mm3 (0.0-0.012); Nucleated Red Blood Cells Perc 0.0 % (0.0-0.2); Platelet Count Result 292 k/mm3 (150-375); Red Blood Count 6.24 M/mm3 (4.6-6.20); White Blood Count 6.2 K/mm3 (4.5-10.0)
[2025-04-24] MEDS: ONDANSETRON INJ 4 MG/2 ML VIAL IV PUSH ×2 (17:16→20:19)
[2025-04-24] MEDS: LACTATED RINGERS 1,000 ML 999 ML IV CONT ×2 (17:16→18:02)
[2025-04-24] MEDS: HYDROmorphone HCL INJ (*CRX) 2 MG/ML VIAL 1 MG IV PUSH (17:16)
--- NOTE | 2025-04-24 17:21 | ED.GENADULT ---
HPI - General Adult General Chief complaint: Abdominal Pain Stated complaint: abd pain, gallbladder attack Time Seen by Provider: 04/24/25 17:00 History of Present Illness HPI narrative: 59-year-old male with history of known gallbladder disease currently having outpatient follow-up with [facility] for his gallbladder presents emergency department complaining of worsening right upper quadrant abdominal pain. Patient reports he had beers and nausea does for lunch. Patient states this does not typically cause worsening pain. Patient states the pain he is having as identical to his previous gallbladder attacks. Patient denies any chest pain or shortness of breath. Patient denies any radiation of his pain to his back. Patient denies any other associated abdominal pain. Patient is very uncomfortable upon arrival to the emergency department does report associated nausea. Patient denies any hematemesis. Patient states he has had follow-up with [facility] because he has a flap in his gallbladder Related Data Home Medications ?Medication ?Instructions ?Recorded ?Confirmed ?Last Taken ?Type tamsulosin 0.4 mg capsule 0.4 mg PO DAILY 07/28/24 08/07/24 08/06/24 History Allergies Allergy/AdvReac Type Severity Reaction Status Date / Time No Known Allergies Allergy Verified 04/24/25 17:20 Review of Systems Review of Systems: All systems reviewed & are unremarkable except as noted in HPI and below PMFSH Social History Social History Alcohol intake: current Drinks per week: 1 Spiritual care concerns: No Exam Narrative: APPEARANCE: Well appearing, no pain, no distress, well-nourished. HEAD: normocephalic, atraumatic. EYES: PERRLA/EOMI, conjunctivae clear. NOSE: Normal no drainage EARS:TMS clear with good light reflex. THROAT: Pharynx clear, no exudate. NECK: Supple. No adenopathy, no masses. RESPIRATORY: Airway patent, respirations nonlabored. Clear to auscultation bilaterally, no rales, rhonchi, wheezing. CARDIOVASCULAR: Regular rate and rhythm without murmurs rubs or gallops. ABDOMINAL: Right upper quadrant abdominal tenderness to palpation, normal bowel sounds MUSCULOSKELETAL: Moves all extremities. Strength/ROM intact, No edema, No calf tenderness. NEURO: Alert. Cranial nerves II through XII intact. Good gait. Good coordination SKIN: Warm, dry. Normal Color Course Vital Signs Vital signs: Vital Signs Temperature 97.1 F L 04/24/25 16:48 Pulse Rate 121 H 04/24/25 16:48 Respiratory Rate 20 04/24/25 16:48 Blood Pressure 154/74 H 04/24/25 16:48 Pulse Oximetry 100 04/24/25 16:48 Temperature 97.9 F 04/24/25 20:20 Pulse Rate 80 04/24/25 20:20 Respiratory Rate 16 04/24/25 20:20 Blood Pressure 120/81 04/24/25 20:20 Pulse Oximetry 100 04/24/25 20:20 Oxygen Delivery Room Air 04/24/25 17:22 Medical Decision Making MDM Narrative Medical decision making narrative: Patient is having outpatient follow-up with [facility] for his gallbladder. Patient seems to be describing a possible polyp causing intermittent not let obstruction. Patient is currently afebrile here with no leukocytosis. Patient does have some elevated liver enzymes with a T bili 4.5 AST of 617 ALT of 1096 alk-phos of 156 and a lipase of 119. No evidence of urinary tract infection. Patient's hepatitis panel is pending. Patient's CT scan was negative for acute abnormality and no evidence of acute cholecystitis on the right upper quadrant ultrasound. Patient does feel significantly improved on re-evaluation. Patient does still have some minor tenderness to palpation but patient is in no distress. Patient does prefer to be discharged home. Patient will be discharged home with Zofran for nausea control and medication for pain control. Patient is also advised to follow a clear liquid diet for the next 1-3 days avoid alcohol and return fatty foods. All questions concerns were addressed. Patient states he does have follow-up with [facility]. Patient appears to be describing that he has a polyp in his gallbladder. Patient may have had a temporary outlet obstruction of his gallbladder. No evidence of acute coli cystitis Differential Diagnosis Differential Diagnosis: Acute cholecystitis, biliary obstruction, biliary colic, colitis, diverticulitis, gastritis, aortic dissection Vital Signs Vital Signs: Vital Signs Temperature 97.1 F L 04/24/25 16:48 Pulse Rate 121 H 04/24/25 16:48 Respiratory Rate 20 04/24/25 16:48 Blood Pressure 154/74 H 04/24/25 16:48 Pulse Oximetry 100 04/24/25 16:48 Temperature 97.9 F 04/24/25 20:20 Pulse Rate 80 04/24/25 20:20 Respiratory Rate 16 04/24/25 20:20 Blood Pressure 120/81 04/24/25 20:20 Pulse Oximetry 100 04/24/25 20:20 Oxygen Delivery Room Air 04/24/25 17:22 Lab Data Lab results reviewed: Yes I reviewed the patient's lab results. 04/24/25 17:03 04/24/25 17:03 Labs: Lab Results 04/24/25 04/24/25 04/24/25 Range/Units 17:03 17:19 20:06 WBC 6.2 (4.5-10.0) K/mm3 RBC 6.24 H (4.6-6.20) M/mm3 Hgb 12.7 L (14.0-18.0) g/dL Hct 42.4 (42.0-52.0) % MCV 67.9 L (80-100) fl MCH 20.4 L (26-34) pg MCHC 30.0 L (32-36) g/dl RDW 18.3 H (11.5-14.5) % Plt Count 292 (150-375) k/mm3 MPV 9.7 (7.4-10.4) fl Immature Gran % (Auto) 0.2 (0-0.5) % Neut % (Auto) 57.6 (45.5-73.1) % Lymph % (Auto) 25.3 (18.3-44.2) % [place] % (Auto) 14.3 H (2.6-8.5) % Eos % (Auto) 1.8 (0-4.4) % Baso % (Auto) 0.8 (0.2-1.2) % Lymph # (Auto) 1.56 (0.9-3.2) K/mm3 [place] # (Auto) 0.9 H (0.1-0.6) K/mm3 Eos # (Auto) 0.1 (0-0.3) K/mm3 Baso # (Auto) 0.1 (0.0-0.1) K/mm3 Abs Immat Gran (auto) 0.01 (0.00-0.031) K/mm3 Absolute Neuts (auto) 3.6 (1.3-6.7) K/mm3 Absolute Nucleated RBC 0.000 (0.0-0.012) K/mm3 Band Neutrophils % 0 (0-6) % Nucleated RBC % 0.0 (0.0-0.2) % Platelet Estimate Adequate (Adequate) Hypochromasia 1+ Anisocytosis 2+ Microcytosis 1+ (NORMAL) Schistocytes None seen Sodium 142 (137-145) mmol/L Potassium 3.9 (3.4-5.0) mmol/L Chloride 106 (98-107) mmol/L Carbon Dioxide 19 L (22-30) mmol/L Anion Gap 17 H (4-12) mmol/L BUN 12 (9-20) mg/dL Creatinine 0.87 (0.7-1.3) mg/dL Estim Creat Clear Calc 85 ml/min Estimated GFR > 60 (59 - ) Glucose 98 (65-110) mg/dL Lactic Acid 6.5 H* 1.9 (0.7-2.0) mmol/L Calcium 9.2 (8.4-10.2) mg/dL Total Bilirubin 1.5 H (0.2-1.3) mg/dL AST 617 H (17-59) U/L ALT 1096 H (6-50) U/L Alkaline Phosphatase 156 H (38-126) U/L Total Protein 8.3 H (6.3-8.2) g/dL Albumin 4.5 (3.5-5.1) g/dL Lipase 119 (23-300) U/L Urine Color Yellow (Yellow) Urine Appearance Clear (Clear) Urine pH 5.5 (5.0-9.0) Ur Specific [place] 1.005 (1.001-1.035) Urine Protein Negative (Negative) mg/dL Urine Glucose (UA) Negative (Negative) mg/dL Urine Ketones Negative (Negative) mg/dL Ur Blood (Man) Negative (Negative) Urine Nitrate Negative (Negative) Urine Bilirubin Negative (Negative) Urine Urobilinogen 1.0 (<2.0) mg/dL Leukocyte Esterase Rfl Negative (Negative) JESSICA/UL Hepatitis A IgM Ab (Negative) Hep Bs Antigen (Negative) Hep B Core IgM Ab (Negative) Hepatitis C Ab Screen (Negative) 04/24/25 Range/Units 20:07 WBC (4.5-10.0) K/mm3 RBC (4.6-6.20) M/mm3 Hgb (14.0-18.0) g/dL Hct (42.0-52.0) % MCV (80-100) fl MCH (26-34) pg MCHC (32-36) g/dl RDW (11.5-14.5) % Plt Count (150-375) k/mm3 MPV (7.4-10.4) fl Immature Gran % (Auto) (0-0.5) % Neut % (Auto) (45.5-73.1) % Lymph % (Auto) (18.3-44.2) % [place] % (Auto) (2.6-8.5) % Eos % (Auto) (0-4.4) % Baso % (Auto) (0.2-1.2) % Lymph # (Auto) (0.9-3.2) K/mm3 [place] # (Auto) (0.1-0.6) K/mm3 Eos # (Auto) (0-0.3) K/mm3 Baso # (Auto) (0.0-0.1) K/mm3 Abs Immat Gran (auto) (0.00-0.031) K/mm3 Absolute Neuts (auto) (1.3-6.7) K/mm3 Absolute Nucleated RBC (0.0-0.012) K/mm3 Band Neutrophils % (0-6) % Nucleated RBC % (0.0-0.2) % Platelet Estimate (Adequate) Hypochromasia Anisocytosis Microcytosis (NORMAL) Schistocytes Sodium (137-145) mmol/L Potassium (3.4-5.0) mmol/L Chloride (98-107) mmol/L Carbon Dioxide (22-30) mmol/L Anion Gap (4-12) mmol/L BUN (9-20) mg/dL Creatinine (0.7-1.3) mg/dL Estim Creat Clear Calc ml/min Estimated GFR (59 - ) Glucose (65-110) mg/dL Lactic Acid (0.7-2.0) mmol/L Calcium (8.4-10.2) mg/dL Total Bilirubin (0.2-1.3) mg/dL AST (17-59) U/L ALT (6-50) U/L Alkaline Phosphatase (38-126) U/L Total Protein (6.3-8.2) g/dL Albumin (3.5-5.1) g/dL Lipase (23-300) U/L Urine Color (Yellow) Urine Appearance (Clear) Urine pH (5.0-9.0) Ur Specific [place] (1.001-1.035) Urine Protein (Negative) mg/dL Urine Glucose (UA) (Negative) mg/dL Urine Ketones (Negative) mg/dL Ur Blood (Man) (Negative) Urine Nitrate (Negative) Urine Bilirubin (Negative) Urine Urobilinogen (<2.0) mg/dL Leukocyte Esterase Rfl (Negative) JESSICA/UL Hepatitis A IgM Ab Negative (Negative) Hep Bs Antigen Negative (Negative) Hep B Core IgM Ab Negative (Negative) Hepatitis C Ab Screen Negative (Negative) Imaging Data Radiologist's impression: Impressions Abdomen/Pelvis CT 04/24/25 18:41 Impression: No significant abnormalities seen. Abdomen Ultrasound 04/24/25 20:22 Impression: No significant abnormality seen. Discharge Plan Discharge Clinical Impression: Biliary colic, Transaminitis Patient Disposition: Home Condition: Stable Instructions: Antibiotic Form, Biliary Colic (ED), Low Fat Diet (ED), Clear Liquid Diet (ED), Abdominal Pain (ED) Additional Instructions: Avoid alcohol, avoid rich fatty foods. Follow a clear liquid diet for the next 1-3 days. Zofran as needed for nausea control. [place] as needed for additional pain control. Continue to have close follow-up with [facility]. If you have any worsening symptoms then please call or return to the emergency department. Patient Language: Turkmen Prescriptions: New hydrocodone-acetaminophen 5-325 mg tablet 1 tablet PO Q12H PRN (Reason: pain) Qty: 14 0RF ondansetron 4 mg tablet,disintegrating 4 mg PO Q8H PRN (Reason: nausea and vomiting) Qty: 14 0RF No Action tamsulosin 0.4 mg capsule 0.4 mg PO DAILY Follow-up/Referrals: Monet,Hong Villanueva MD [Primary Care Provider] -
[2025-04-24 17:22] VITALS: BP 145/89; PULSE 82; RESP 26; O2SAT 99
[2025-04-24 17:25] LABS: Add Urine Microscopic? NO; Appearance Urine Clear (Clear); Glucose Urine UA Negative (Negative); Leukocyte Esterase Ur Negative LEU/UL (Negative); Nitrate Urine Negative (Negative); Specific Grav Ur 1.005 (1.001-1.035)
[2025-04-24 17:34] LABS: Albumin Level 4.5 g/dL (3.5-5.1); Alkaline Phosphatase 156 U/L (38-126); Anion Gap 17 mmol/L (4-12); Aspartate Amino Transferase 617 U/L (17-59); Bilirubin,Total 1.5 mg/dL (0.2-1.3); Blood Urea Nitrogen 12 mg/dL (9-20); Calcium 9.2 mg/dL (8.4-10.2); Carbon Dioxide 19 mmol/L (22-30); Chloride 106 mmol/L (98-107); Estimated CRCL calculation 85 ml/min; Estimated Glomerular Filt Rate > 60; Glucose 98 mg/dL (65-110); Lipase 119 U/L (23-300); Potassium 3.9 mmol/L (3.4-5.0); Schistocytes None Seen; Sodium 142 mmol/L (137-145); Total Protein 8.3 g/dL (6.3-8.2)
[2025-04-24 17:35] LABS: Band Neutrophils Percent 0 % (0-6); Hypochromasia 1+; Microcytosis 1+ (NORMAL)
[2025-04-24 17:36] LABS: Anisocytosis 2+
[2025-04-24 18:01] LABS: Alanine Aminotransferase 1096 U/L (6-50)
--- OUTSIDE RECORDS SUMMARY | 2025-04-24 18:45 | XMS_ITS | Referral Summary ---
Author Organization [facility] Address [address] [place] [address] Care Team Providers Care Modeling Agent Name Role Phone Hong Healy MD Primary Care Provider [phone] Encounters Date Type Department Care Team Description 04/23/2025 Results Follow-Up [facility] [address] [place] [address] [address] [place] [phone] [facility] Telephone [facility] [address] [place] [address] [address] [place] [phone] Hong Healy MD 04/16/2025 7:41 AM CDT - 04/16/2025 11:59 PM CDT Hospital Encounter [address] [address] Pain in right testicle; Swelling of right testicle Discharge Disposition: Discharge to home or self care 04/14/2025 2:45 PM CDT Office Visit [facility] [address] [place] [address] [address] [place] [phone] Jessica Crooks NP Pain in right testicle (Primary Dx); Swelling of right testicle; Right groin pain 02/26/2025 Results Follow-Up [facility] [address] [place] [address] [address] [place] [phone] Hong Healy MD [place] [facility] 02/26/2025 7:28 AM CDT - 02/26/2025 11:59 PM CDT Hospital Encounter [facility] [address] [place] [address] RUQ pain Discharge Disposition: Discharge to home or self care 02/13/2025 Results Follow-Up [facility] [address] [facility] [address] [place] [address] Hong Healy MD Basic metabolic panel, Ferritin, CBC with auto differential 01/25/2025 Results Follow-Up [facility] [address] [facility] [address] [facility] [place] [address] Hong Healy MD [place] RUQ from Last 3 Months Allergies No known active allergies Medications No known medications Active Problems Patient Care Coordination No te Formatting of this note migh t be different from the original. Tongue pain Problem Noted Date Diagnosed Date Sprain of left ankle 06/12/2022 Family history of colon cancer 12/06/2020 Assessment & Plan (12/06/2020 11:30 AM CHEMICAL ETCH OPERATOR): Next colonoscopy in 2023 Anemia 03/11/2020 Contusion of rib 03/11/2020 Raised prostate specific antigen 03/11/2020 Assessment & Plan (12/06/2020 11:29 AM CHEMICAL ETCH OPERATOR): Per urology Thalassemia 03/11/2020 Assessment & Plan (12/06/2020 11:29 AM CHEMICAL ETCH OPERATOR): Will continue to follow Well adult health check 03/11/2020 Closed fracture of right fibula and tibia 2019 Overview (01/21/2020): Added automatically from request for surgery [id number] Pain in right knee 12/17/2017 Impotence 07/17/2017 [...] on file Legal Sex Male 2:40 PM CHEMICAL ETCH OPERATOR Gender Identity Male 08/26/2018 2:44 PM CHEMICAL ETCH OPERATOR Sexual Orientation Straight 07/26/2024 9: 27 AM [...] on file Medical Devices Implanted Type Area Meat Cutter Device Identifier Shelf Expiration Date Model / Serial / Lot [employer]/Orth o [id number] Evos 32mm 4 Hole Lock Reconstruction Plate Bone Sterile 2.7mm - [id number] Implanted:Qty: 1 on 01/22/2020 by Nicki Bates MD at [facility] Right: Tibia [employer]Or tho [id number] / / [employer]/Orth o [id number] Evos 3.5mm 40mm Self Tap Cortex Screw Bone Sterile - [id number] Implanted:Qty: 1 on 01/22/2020 by Nicki Bates MD at [facility] Right: Tibia [employer]/Or tho [id number] / / [employer]/Orth o [id number] Evos 3.5mm 24mm Self Tap Cortex Screw Bone Sterile - [id number] Implanted:Qty: 1 on 01/22/2020 by Nicki Bates MD at [facility] Right: Tibia [employer]/Or tho [id number] / / [employer]/Orth o [id number] Evos 3.5mm 24mm Self Tap Lock Screw Bone Sterile - [id number] Implanted:Qty: 1 on 01/22/2020 by Nicki Bates MD at [facility] Right: Tibia [employer]/Or tho [id number] / / [employer]/Orth o [id number] Evos 3.5mm 80mm Self Tap Lock Screw Bone Sterile - [id number] Implanted:Qty: 1 on 01/22/2020 by Nicki Bates MD at [facility] Right: Tibia [employer]/Or tho [id number] / / Tsrange [employer] Nephew/Rich[employer]/Orth o [id number] Evos 3.5mm 75mm Self Tap Lock Screw Bone Sterile - [id number] Implanted:Qty: 6 on 01/22/2020 by Nicki Bates MD at [facility] Right: Tibia [employer]Or tho [id number] / / [employer]/Orth o [id number] Evos 3.5mm 70mm Self Tap Lock Screw Bone Sterile - [id number] Implanted:Qty: 1 on 01/22/2020 by Nicki Bates MD at [facility] Right: Tibia [employer]/Or tho [id number] / / [employer]/Orth o [id number] Evos 3.5mm 60mm Self Tap Lock Screw Bone Sterile - [id number] Implanted:Qty: 2 on 01/22/2020 by Nicki Bates MD at [facility] Right: Tibia [employer]/Or tho [id number] / / [employer]/Orth o [id number] Evos 3.5mm 55mm Self Tap Lock Screw Bone Sterile - [id number] Implanted:Qty: 1 on 01/22/2020 by Nicki Bates MD at [facility] Right: Tibia [employer]Rich[employer]/Or tho [id number] / / [employer]/Orth o [id number] - [id number] Implanted:Qty: 1 on 01/22/2020 by Nicki Bates MD at [facility] Right: Tibia [employer]/Or tho [id number] / / [employer]/Orth o [id number] Evos 75x10.9x2mm 25x1.5mm 4 Hole Low Profile Variable Angle Lock - [id number] Implanted:Qty: 1 on 01/22/2020 by Nicki Bates MD at [facility] Right: Tibia [employer]Rich[employer]/Or tho [id number] / / [employer]Rich[employer]/Orth o [id number] Evos 200x11.5x3.6mm 32.3x1.9mm 16 Hole Low Profile Variable Angle - [id number] Implanted:Qty: 1 on 01/22/2020 by Nicki Bates MD at [facility] Right: Tibia [employer]Rich[employer]/Or tho [id number] / / [employer]Rich[employer]/Orth o [id number] Evos Mini 2.7mm 4.5mm 75mm Self Tap Milling Operator Long Bone Small Bone - [id number] Implanted:Qty: 2 on 01/22/2020 by Nicki Bates MD at [facility] Right: Tibia [employer]Rich[employer]/Or tho [id number] / / [employer]hew[employer]Rich[employer]/Orth o [id number] Evos Mini 2.7mm 4.5mm 75mm Self Tap Cortex T8 Screw Bone - [id number] Implanted:Qty: 1 on 01/22/2020 by Nicki Bates MD at [facility] Right: Tibia [employer]Rich[employer]/Or tho [id number] / / [employer]Rich[employer]/Orth o [id number] Evos Mini 2.7mm 4.5mm 65mm Self Tap Cortex T8 Screw Bone - [id number] Implanted:Qty: 1 on 01/22/2020 by Nicki Bates MD at [facility] Right: Tibia Tsrange [employer] Nephew/Richco/Or tho [id number] / / [employer]/Rich[employer]/Orth o [id number] Evos 3.5mm 34mm Self Tap Cortex Screw Bone Sterile - [id number] Implanted:Qty: 1 on 01/22/2020 by Nicki Bates MD at [facility] Right: Tibia [employer]Rich[employer]/Or tho [id number] / / [employer]Rich[employer]/Orth o [id number] Evos 3.5mm 22mm Self Tap Cortex Screw Bone Sterile - [id number] Implanted:Qty: 1 on 01/22/2020 by Nicki Bates MD at [facility] Right: Tibia [employer]/Rich[employer]/Or tho [id number] / / Explanted Type Area Meat Cutter Device Identifier Shelf Expiration Date Model / Serial / Lot [employer]Rich[employer]/ Ortho [id number] Evos 3.5mm 36mm Self Tap Cortex Screw Bone Sterile - [id number] Explanted:Qty: 1 on 01/22/2020 by Nicki Bates MD at [facility] Right: Tibia [employer]Rich[employer]/Or tho [id number] / / Procedures Procedure Name Priority Date/Time [...] Anirudh Delgado M.D. BS T: Report ID: [id number] Reading Location: [id number] Procedure Note Anirudh Delgado MD - 04/22/2025 [...] Anirudh Delgado M.D. BS T: Report ID: [id number] Reading Location: [place] [address] us Jessica Crooks NP IMG US PROCEDURES [...] results of this study was sent to [email or web address]/PACS by the interpreting physician Dr Rowdy Arriaza. [...] results of this study was sent to [email or web address]/PACS by the interpreting physician Dr Rowdy Arriaza. [...] - 02/13/2025 9:10 AM CDT Performed at: [address] [place] [id number] Other Spatial Scientist: Akira Meraz PhD, Phone: [phone] us Hong Healy MD LAB BLOOD ORDERABLES Final Re sult [facility] * Ferritin (02/12/2025 12:31 PM CDT) [facility] Ferritin 187 30 - 400 ng/mL [facility] - 01 Blood 02/12/2025 12:3 1 PM CDT 02/12/2025 Narrative [facility] - 02/13/2025 9:10 AM CDT Performed at: 01 - [facility] [id number] Other Spatial Scientist: Akira Meraz PhD, Phone: [phone] Hong Healy MD LAB BLOOD ORDERABLES Final Re sult Performing Organization Address [facility] Co de Phone Number [facility] * Basic metabolic panel (02/12/2025 12:31 PM CDT) Pathologist [facility] Glucose 91 70 - 99 mg/dL [...] - 02/13/2025 9:10 AM CDT Performed at: [address] [place] [id number] Other Spatial Scientist: Akira Meraz PhD, Phone: [phone] Hong Healy MD LAB BLOOD ORDERABLES Final Re sult Performing Organization Address [facility] Co de Phone Number [facility] - * (ABNORMAL) PSA screen (01/06/2025 3:14 PM CDT) Pathologist [facility] PSA-Total 4.51(H) <=3.90 ng/mL Comment: Interpretive [...] ORDERABLES Final Re sult Performing Organization Address [facility] Co de Phone Number [facility] Department [place] [address] * Hepatitis C antibody Blood (01/06/2025 3:14 PM CDT) Hep C Ab Nonreactive Nonreactive Comment:Antibodies to HCV no t detected. Does NOT exclude the possibility of recent exposure to HCV. Current interpretive data was last revised on 22 Blood 01/06/2025 3:14 PM CDT 01/06/2025 3:42 PM CDT Hong Healy MD LAB MICROBIOLOGY - GENERAL OR DERABLES Final Result Performing Organization Address [facility] de Phone Number [facility] Department [place] [address] * Colonoscopy (12/06/2018) Anatomical Region Laterality Modality Other Narrative 12/06/2018 Pt reported he [facility] 2 [facility] ago [facility] Historical Provider ENDOSCOPY PROCEDURES Aidee l Result from Last 3 Months or Most Recently Relevant to Health Maintenance [facility] ACCESS CHOICE Advance Directives For more information, please contact: [phone] * Full Code (Latest Code Status on File) Date Activated Date Inactivated Comments 01/21/2020 10:40 PM 01/24/2020 8:13 PM Care Teams Modeling Agent Relationship Specialty Start Date End Date Hong Healy MD PCP - General Internal Medicine 12/06/20
--- OUTSIDE RECORDS SUMMARY | 2025-04-24 18:45 | XMS_ITS | Encounter Summary ---
Author Organization [facility] Address [address] [place] [address] Care Team Providers Care Day Trader Name Role Phone Hong Healy MD Primary Care Provider [phone] Reason for Referral * MRI/CAT/PET Scan (Routine) - Authorized Specialty Diagnoses / Procedures Referred By Contac t Referred To Contact Radiology Diagnoses Pain in right testicle Procedures CT Abdomen Pelvis W Contrast Jessica Crooks NP [address] [address] Phone: tel: fax: [address] [address] Referral ID Status Reason Start Date Expiration Date V isits Requested Visits Authorized [id number] Authorized 04/23/2025 05/22/2025 1 1 Encounter Details Date Type Department Care Team (Late st Contact Info) Description 04/23/2025 Results Follow-Up [facility] [address] [facility] [address] [address] Jessica Crooks NP [facility] [address] [address] [place] Social History Tobacco [...] on file Legal Sex Male 2:40 PM PRODUCT SAFETY LEAD Gender Identity Male 08/26/2018 2:44 PM PRODUCT SAFETY LEAD Sexual Orientation Straight 07/26/2024 9: 27 AM [...] organs documented in this encounter Care Teams Day Trader Relationship Specialty Start Date End Date Hong Healy MD PCP - General Internal Medicine 12/06/20 documented as of this encounter
--- OUTSIDE RECORDS SUMMARY | 2025-04-24 18:45 | XMS_ITS | Clinical Summary ---
Author Organization [facility] Address [address] [place] [address] Phone Care Team Providers Care Police Lieutenant Patrol Name Role Phone Hong Healy MD Primary Care Provider [phone] Allergies No known active allergies Social History Tobacco Use Types Packs/Day Years Used Date Smoking Tobacco: Never Assessed Sex and Gender Information Value Date Recorded Sex Assigned at Not on file Legal Sex Male 11:37 AM [employer]ALEGAL INTER[employer] Gender Identity Not on file Sexual Orientation Not on file Last Filed Vital Signs Vital Sign Reading Time Taken Comments Blood Pressure - - Pulse - - Temperature - - Respiratory Rate - - Oxygen Saturation - - Inhaled Oxygen Concentration - - Weight 72.6 kg (160 lb) 11/08/2021 1:13 PM [employer] Height 177.8 cm (5' 10) 11/08/2021 1:13 PM [employer] Body Mass Index 22.96 11/08/2021 1:13 PM [employer] Plan of Treatment Health Maintenance Due Date [...] BS BLUE ACCESS/TRUE BLUE PPO Care Teams Police Lieutenant Patrol Relationship Specialty Start Date End Date Hong Healy MD [address] [address] PCP - General Internal Medicine 11/08/21
--- OUTSIDE RECORDS SUMMARY | 2025-04-24 18:45 | XMS_ITS | Clinical Summary ---
Author Organization [facility] Address [address] [place] [address] Care Team Providers Care Golf Shoe Spike Assembler Name Role Phone Hong Healy MD Primary Care Provider [phone] Allergies No known active allergies Medications No known medications Active Problems Patient Care Coordination No te Formatting of this note migh t be different from the original. Tongue pain Problem Noted Date Diagnosed Date Sprain of left ankle 06/12/2022 Family history of colon cancer 12/06/2020 Assessment & Plan (12/06/2020 11:30 AM TELEPHONE ENGINEER): Next colonoscopy in 2023 Anemia 03/11/2020 Contusion of rib 03/11/2020 Raised prostate specific antigen 03/11/2020 Assessment & Plan (12/06/2020 11:29 AM TELEPHONE ENGINEER): Per urology Thalassemia 03/11/2020 Assessment & Plan (12/06/2020 11:29 AM TELEPHONE ENGINEER): Will continue to follow Well adult health check 03/11/2020 Closed fracture of right fibula and tibia 2019 Overview (01/21/2020): Added automatically from request for surgery [id number] Pain in right knee 12/17/2017 Impotence 07/17/2017 Encounters Date Type Department Care Team Description 04/23/2025 Results Follow-Up [facility] [address] [place] [address] Jessica Crooks, NUT FEEDER US Scrotum 04/19/2025 Telephone [facility] [address] [place] [phone] Hong Helay MD 04/16/2025 7:41 AM CDT - 04/16/2025 11:59 PM CDT Hospital Encounter [address] [address] Pain in right testicle; Swelling of right testicle Discharge Disposition: Discharge to home or self care 04/14/2025 2:45 PM CDT Office Visit [facility] [address] [place] [address] [address] [place] [phone] Jessica Crooks NP Pain in right testicle (Primary Dx); Swelling of right testicle; Right groin pain 02/26/2025 7:28 AM CDT - 02/26/2025 11:59 PM CDT Hospital Encounter [facility] [address] [place] [address] RUQ pain Discharge Disposition: Discharge to home or self care 02/26/2025 Results Follow-Up [facility] [address] [place] [address] [address] [place] [phone] Hong Healy MD CT Hepatobiliary Imaging [facility] 02/13/2025 Results Follow-Up [facility] [address] [place] [address] [address] [place] [phone] Hong Healy MD Basic metabolic panel, Ferritin, CBC with auto differential 01/25/2025 Results Follow-Up [facility] [address] [place] [address] [address] [facility] [place] [phone] Hong Healy MD US RUQ from Last [...] on file Legal Sex Male 2:40 PM TELEPHONE ENGINEER Gender Identity Male 08/26/2018 2:44 PM TELEPHONE ENGINEER Sexual Orientation Straight 07/26/2024 9: 27 AM [...] Completed 01/06/2025 Medical Devices Implanted Type Area Debt And Budget Counselor Device Identifier Shelf Expiration Date Model / Serial / Lot [employer]/Orth o [id number] Evos 32mm 4 Hole Lock Reconstruction Plate Bone Sterile 2.7mm - [id number] Implanted:Qty: 1 on 01/22/2020 by Nicki Bates MD at [facility] Right: Tibia [employer]Or tho [id number] / / [employer]Orth o [id number] Evos 3.5mm 40mm Self Tap Cortex Screw Bone Sterile - [id number] Implanted:Qty: 1 on 01/22/2020 by Nicki Bates MD at [facility] Right: Tibia [employer]Or tho [id number] / / [employer]/Orth o [id number] Evos 3.5mm 24mm Self Tap Cortex Screw Bone Sterile - [id number] Implanted:Qty: 1 on 01/22/2020 by Nicki Bates MD at [facility] Right: Tibia [employer]Or tho [id number] / / [employer]/Orth o [id number] Evos 3.5mm 24mm Self Tap Lock Screw Bone Sterile - [id number] Implanted:Qty: 1 on 01/22/2020 by Nicki Bates MD at [facility] Right: Tibia [employer]Or tho [id number] / / [employer]/Orth o [id number] Evos 3.5mm 80mm Self Tap Lock Screw Bone Sterile - [id number] Implanted:Qty: 1 on 01/22/2020 by Nicki Bates MD at [facility] Right: Tibia [employer]Or tho [id number] / / [employer]/Orth o [id number] Evos 3.5mm 75mm Self Tap Lock Screw Bone Sterile - [id number] Implanted:Qty: 6 on 01/22/2020 by Nicki Bates MD at [facility] Right: Tibia [employer]Or tho [id number] / / [employer]Orth o [id number] Evos 3.5mm 70mm Self Tap Lock Screw Bone Sterile - [id number] Implanted:Qty: 1 on 01/22/2020 by Nicki Bates MD at [facility] Right: Tibia [employer]Or tho [id number] / / [employer]/Orth o [id number] Evos 3.5mm 60mm Self Tap Lock Screw Bone Sterile - [id number] Implanted:Qty: 2 on 01/22/2020 by Nicki Bates MD at [facility] Right: Tibia [employer]Or tho [id number] / / [employer]/Orth o [id number] Evos 3.5mm 55mm Self Tap Lock Screw Bone Sterile - [id number] Implanted:Qty: 1 on 01/22/2020 by Nicki Bates MD at [facility] Right: Tibia [employer]Or tho [id number] / / [employer]/Orth o [id number] - [id number] Implanted:Qty: 1 on 01/22/2020 by Nicki Bates MD at [facility] Right: Tibia [employer]Or tho [id number] / / [employer]Orth o [id number] Evos 75x10.9x2mm 25x1.5mm 4 Hole Low Profile Variable Angle Lock - [id number] Implanted:Qty: 1 on 01/22/2020 by Nicki Bates MD at [facility] Right: Tibia [employer]Or tho [id number] / / [employer]/Orth o [id number] Evos 200x11.5x3.6mm 32.3x1.9mm 16 Hole Low Profile Variable Angle - [id number] Implanted:Qty: 1 on 01/22/2020 by Nicki Bates MD at [facility] Right: Tibia [employer]/Or tho [id number] / / [employer]/Orth o [id number] Evos Mini 2.7mm 4.5mm 75mm Self Tap Pump Service Supervisor Long Bone Small Bone - [id number] Implanted:Qty: 2 on 01/22/2020 by Nicki Bates MD at [facility] Right: Tibia [employer]/Or tho [id number] / / [employer]/Orth o [id number] Evos Mini 2.7mm 4.5mm 75mm Self Tap Cortex T8 Screw Bone - [id number] Implanted:Qty: 1 on 01/22/2020 by Nicki Bates MD at [facility] Right: Tibia [employer]/Or tho [id number] / / [employer]/Orth o [id number] Evos Mini 2.7mm 4.5mm 65mm Self Tap Cortex T8 Screw Bone - [id number] Implanted:Qty: 1 on 01/22/2020 by Nicki Bates MD at [facility] Right: Tibia [employer]/Or tho [id number] / / [employer]/Orth o [id number] Evos 3.5mm 34mm Self Tap Cortex Screw Bone Sterile - [id number] Implanted:Qty: 1 on 01/22/2020 by Nicki Bates MD at [facility] Right: Tibia [employer]/Or tho [id number] / / [employer]/Orth o [id number] Evos 3.5mm 22mm Self Tap Cortex Screw Bone Sterile - [id number] Implanted:Qty: 1 on 01/22/2020 by Nicki Bates MD at [facility] Right: Tibia [employer]/Or tho [id number] / / Explanted Type Area Debt And Budget Counselor Device Identifier Shelf Expiration Date Model / Serial / Lot [employer]/ Ortho [id number] Evos 3.5mm 36mm Self Tap Cortex Screw Bone Sterile - [id number] Explanted:Qty: 1 on 01/22/2020 by Nicki Bates MD at [facility] Right: Tibia [employer]Or tho [id number] / / Procedures Procedure Name Priority Date/Time [...] signed by Anirudh WINN T: Report ID: [id number] Reading Location: [id number] Procedure Note Anirudh Delgado MD - 07/17/2025 [...] Anirudh Delgado M.D. BS T: Report ID: [id number] Reading Location: [id number] us Jessica Crooks NP IMG US PROCEDURES [...] results of this study was sent to [facility] by the interpreting physician Dr Rowdy Arriaza. [...] results of this study was sent to [facility] by the interpreting physician Dr Rowdy Arriaza. [...] - 02/13/2025 9:10 AM CDT Performed at: [address] [place] [id number] [employer] Hr Developer: Akira Meraz PhD, Phone: [phone] Hong Healy MD LAB BLOOD ORDERABLES Final Re sult Performing Organization Address [facility] de Phone Number [facility] * Ferritin (02/12/2025 12:31 PM CDT) [facility] Ferritin 187 30 - 400 ng/mL [facility] - 01 Blood 02/12/2025 12:3 1 PM CDT 02/12/2025 Narrative [facility] - 02/13/2025 9:10 AM CDT Performed at: [address] [place] [id number] [employer] H[employer] Developer: Akira Meraz PhD, Phone: [phone] Hong Healy MD LAB BLOOD ORDERABLES Final Re sult Performing Organization Address [facility] de Phone Number [facility] - [...] - 02/13/2025 9:10 AM CDT Performed at: [address] [id number] [employer] H[employer] Developer: Akira Meraz PhD, Phone: [phone] us Hong Healy MD LAB BLOOD ORDERABLES Final Re sult [facility] - * (ABNORMAL) PSA screen (01/06/2025 3:14 PM CDT) Pathologist [facility] PSA-Total 4.51(H) <=3.90 ng/mL Comment: Interpretive Data [...] ORDERABLES Final Re sult Performing Organization Address City/State/[facility] Co de Phone Number [facility] [place] [address] * Hepatitis C antibody Blood (01/06/2025 3:14 PM CDT) Hep C Ab Nonreactive Nonreactive Comment:Antibodies to HCV no t detected. Does NOT exclude the possibility of recent exposure to HCV. Current interpretive data was last revised on 22 Blood 01/06/2025 3:14 PM CDT 01/06/2025 3:42 PM CDT Hong Healy MD LAB MICROBIOLOGY - GENERAL OR DERABLES Final Result Performing Organization Address [facility] Co de Phone Number [facility] [place] [address] * Colonoscopy (12/06/2018) Anatomical Region Laterality Modality Other Narrative 12/06/2018 Pt reported he had 2 [facility] ago [facility] Historical Provider ENDOSCOPY PROCEDURES Aidee l Result from Last 3 Months or Most Recently Relevant to Health Maintenance Insurance [facility] [employer] [facility] ACCESS CHOICE Advance Directives For more information, please contact: [phone] * Full Code (Latest Code Status on File) Date Activated Date Inactivated Comments 01/21/2020 10:40 PM 01/24/2020 8:13 PM Care Teams Golf Shoe Spike Assembler Relationship Specialty Start Date End Date Hong Healy MD PCP - General Internal Medicine 12/06/20
[2025-04-24 19:07] VITALS: BP 129/77; PULSE 73; RESP 18; O2SAT 98
--- NOTE | 2025-04-24 19:45 | PC.NURSE ---
Received report from SHLOMO Iniguez for cont. of care. Pt AOX4, lying on stretcher c/o 12/14 abdominal pain, non radiating. Pt on cont. desk monitor and pulse oximeter.
[2025-04-24 20:20] VITALS: BP 120/81; PULSE 80; RESP 16; TEMP 36.6; O2SAT 100
[2025-04-24 21:03] LABS: Hepatitis B Surface Antigen Negative (Negative)
[2025-04-24 21:08] LABS: HAV RESULT Negative (Negative); Hepatitis B Core IgM Result Negative (Negative)
== END 2025-04-24 20:59 | disposition home or self-care (01) ==
PROVIDERS: Emergency Medicine; Emergency Provider Emergency Medicine; PCP Internal Medicine
DX: R10.11 Right upper quadrant pain (principal); R74.01 Elevation of levels of liver transaminase levels; K82.9 Disease of gallbladder, unspecified
CPT/HCPCS: 36415; 74177; 76705; 80053; 80074; 81003; 83605; 83690; 85025; 96361; 96374; 96375; 96376; 99284; J1171; J2405; J7120; Q9967